=== PATIENT | male | born 1975 | race Caucasian/White ===

== ENCOUNTER 2021-03-29 16:17 | Emergency (ER) | payer BC, SELFPAY ==
[2021-03-29 16:32] VITALS: BP 124/92; PULSE 80; RESP 20; TEMP 37; O2SAT 98
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
[2021-03-31 20:33] LABS: SARS-CoV-2 RNA PCR Negative
== END 2021-03-29 17:38 | disposition home or self-care (01) ==
PROVIDERS: Emergency Provider Nurse Practitioner Family; PCP Internal Medicine
DX: J02.9 Acute pharyngitis, unspecified (principal); Z20.822 Contact with and (suspected) exposure to COVID-19
CPT/HCPCS: 87081; 87426; 87880; 99213; C9803; G0463; U0003; U0005

== ENCOUNTER 2021-05-22 19:26 | Emergency (ER) | payer BC, SELFPAY ==
[2021-05-22 19:33] VITALS: BP 135/90; PULSE 91; RESP 18; TEMP 36.9; O2SAT 98
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
[2021-05-24 19:29] LABS: SARS-CoV-2 RNA PCR Negative
== END 2021-05-22 20:05 | disposition home or self-care (01) ==
PROVIDERS: Emergency Provider Nurse Practitioner; PCP Internal Medicine
DX: R43.9 Unspecified disturbances of smell and taste (principal); Z20.822 Contact with and (suspected) exposure to COVID-19
CPT/HCPCS: 87426; 99213; C9803; G0463; U0003; U0005

== ENCOUNTER 2021-09-10 14:15 | Emergency (ER) | payer BC, SELFPAY ==
[2021-09-10 14:27] VITALS: BP 129/84; PULSE 95; RESP 18; TEMP 37.7; O2SAT 100
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
[2021-09-11 12:27] LABS: SARS-CoV-2 RNA PCR Positive
== END 2021-09-10 15:27 | disposition home or self-care (01) ==
PROVIDERS: Emergency Provider Nurse Practitioner Family; PCP Internal Medicine
DX: U07.1 COVID-19 (principal)
CPT/HCPCS: 99213; C9803; G0463; U0003; U0005

== ENCOUNTER 2023-04-08 12:20 | Emergency (ER) | payer BC, SELFPAY ==
[2023-04-08 12:33] VITALS: BP 132/81; PULSE 70; RESP 18; TEMP 36.4; O2SAT 100
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
== END 2023-04-08 12:46 | disposition home or self-care (01) ==
PROVIDERS: Emergency Provider Nurse Practitioner Family; PCP Nurse Practitioner Family
DX: L25.9 Unspecified contact dermatitis, unspecified cause (principal)
CPT/HCPCS: 99213; G0463

== ENCOUNTER 2024-12-02 09:13 | Emergency (ER) | payer OTHER, SELFPAY ==
--- NOTE | ~2024-12-02 | XR_ITS ---
XR abdomen/kub 1V 12/02/2024 09:50 INDICATION: Generalized abdominal pain TECHNIQUE: KUB COMPARISON: None FINDINGS: Bowel gas pattern is normal. There is no evidence of free air, mass, organomegaly, ascites or obstruction. No abnormal calculi are seen. The bones appear intact. IMPRESSION: 1: No acute abdominal abnormality identified. Reviewed, dictated and finalized at location B.
--- OUTSIDE RECORDS SUMMARY | 2024-12-02 09:15 | XMS_ITS | Clinical Summary ---
Author Organization [facility] Address [address] [place] [address] Care Team Providers Care Florist Supplies Salesperson Name Role Phone Ching Morales Primary Care Provider [phone] Allergies Active Allergy Reactions Criticality Noted Date Comments Seasonal Sneezing 05/15/2021 Medications loratadine 10 MG tablet Take 1 tablet (10 mg total) by mouth daily as needed for Allergies. 7 Active CPAP MACHINEIndicati ons:Obstructive sleep apnea, adult Serra and Paykel Simplus medium size with heated humidifier , pressure setting of 14 cm of water 1 Device 9 Active CPAP SUPPLIESIndicat ions:Obstructiv e sleep apnea, adult Use per instructions 1 Device 1 9 Active albuterol sulfate HFA 108 (90 Base) MCG/ACT inhalerIndicati ons:Bronchitis Inhale 2 puffs into the lungs every 6 (six) hours as needed for Wheezing. 18 g 4 Active albuterol sulfate HFA 108 (90 Base) MCG/ACT inhalerIndicati ons:Bronchitis Inhale 2 puffs into the lungs every 4 (four) hours as needed for Wheezing. 8 g 4 Active Respiratory Therapy Supplies (NEBULIZER/TUBI NG/MOUTHPIECE) KitIndications: Acute bronchitis, unspecified organism 1 each by Does not apply route every 4 (four) hours as needed. 1 kit 4 Active budesonide-glyc opyrrolate-form oterol (BREZTRI AEROSPHERE) 160-9-4.8 MCG/ACT inhaler Inhale 1 puff into the lungs 2 (two) times daily. Active ipratropium-alb uterol (DUONEB) 0.5-2.5 (3) MG/3ML Solution Take 3 mLs by nebulization. 4 Active Active Problems Problem Noted Date Diagnosed Date Carpal tunnel syndrome of right wrist 02/21/2021 Folliculitis 10/14/2020 Fungal dermatosis 09/12/2019 Upper respiratory tract infection, unspecified t ype 08/02/2019 Assessment & Plan (08/02/2019 3:10 PM REHAB AIDE): Suspect viral URI try flonase and tessalon pearles. If no improvement in a few days then can try z pack Dermatitis of perianal region 03/30/2019 Obstructive sleep apnea, adult 08/20/2017 BMI 34.0-34.9,adult 05/13/2016 Seasonal allergic rhinitis 12/27/2014 Resolved Problems Problem Noted Date Diagnosed Date Resolved Date Acute right-sided low back p ain without sciatica 11/02/2018 03/30/2019 Influenza 11/02/2018 03/30/2019 Cough 11/02/2018 03/30/2019 Encounter for preventive health examination 06/23/2012 10/25/2018 Immunizations Name Administration Dates Next Due Fluarix (IIV4) 08/07/2020 Influenza (Generic) 09/13/2022, 2,09/12/2019,2016 Influenza Adult (Generic) 08/07/2020,07/01/2017 MODERNA COVID-19 (12+) MRNA, LNP-S, PF, 100 MCG/ 0.5 ML DOSE 11/07/2020,10/11/2020 Td (Tenivac) preservative free 05/13/2011 Td, Adsorbed, Preservative F ree, Adult Use, Lf Unspecified 05/13/2011 Tdap (Adacel) 07/08/2014 Tdap (Generic) 07/08/2014 Family History Medical History Relation Comments Heart Father Hypertension Mother Diabetes Other Relation Status Comments Father Alive Mother Alive Other Alive Social History Tobacco Use Types Packs/Day Years Used Date Smoking Tobacco: Never Smokeless Tobacco: Never Tobacco Cessation:Counseling Given: No Comments:non smoker Alcohol Use Standard Drinks/Week Comments Yes 0 (1 standard drink = 0.6 oz pur e alcohol) socially AUDIT-C Answer Date Recorded Frequency of Alcohol Consumption 2-4 times a mon th 10/21/2018 Average Number of Drinks Not on file 019 Frequency of Binge Drinking Not on file 04/2019 PHQ-2 Answer Date Recorded Patient Health Questionnaire-2 Score 0 02/09/2023 Education Answer Date Recorded What is the highest level of school you have completed or the highest degree you have received? Bachelor's degree (e.g., BA, AB, BS) 11/01/2018 Sex and Gender Information Value Date Recorded Sex Assigned at Not on file Legal Sex Male 5:36 PM CDT Gender Identity Not on file Sexual Orientation Not on file Occupation Industry Job Start Date Job End Date Not on file Not on file Not on file Not on file Last Filed Vital Signs Vital Sign Reading Time Taken Comments Blood Pressure 122/73 08/07/2024 1:27 PM REHAB AIDE Pulse 62 08/07/2024 1:27 PM REHAB AIDE Temperature 36.6 C (97.9 F) 08/07/2024 1:27 PM REHAB AIDE Respiratory Rate 16 08/07/2024 1:27 PM REHAB AIDE Oxygen Saturation 100% 08/07/2024 1:27 PM REHAB AIDE Inhaled Oxygen Concentration - - Weight 117.5 kg (259 lb) 08/07/2024 1:27 PM REHAB AIDE Height 182.9 cm (6') 08/07/2024 1:27 PM REHAB AIDE Body Mass Index 35.13 08/07/2024 1:27 PM REHAB AIDE Plan of Treatment Health Maintenance Due Date Last Done Comments Hepatitis B Vaccines (1 of 3 - 19+ 3-dose series) 12/03/1995 PHQ-2 (Physician [place]) 02/10/2024 02/09/2023 Influenza Adult (#1) 2024 09/13/2022, 09/13/2021, 08/07/2020, Additional history exists DTaP, Tdap and Td Vaccines (3 - Td or Tdap) 07/08/2024 07/08/2014, 07/08/2014, 05/13/2011, Additional history exists PHQ-2 (Physician [place]) 09/13/2024 02/09/2023 Annual Physical 08/07/2025 08/07/2024, 12/16/2021 Colorectal Cancer Screening FIT-DNA (3 Years) 08/10/2025 08/10/2022, 08/10/2022 COVID-19 Vaccine ( season) 2031 11/07/2020, 10/11/2020 Postponed from 05/14/2024 (Patient Refused) Hepatitis C Completed 02/09/2023 Meningococcal B Vaccine Aged Out No l onger eligible based on patient's age to complete this topic Meningococcal Vaccine Aged Out No shon noris eligible based on patient's age to complete this topic Pneumococcal Vaccine: Pediatrics (0 to 5 Years) and At-Risk Patients (6 to 64 Years) Aged Out No longer eligible based on patient's age to complete this topic RSV Immunizations Under 20 Months Aged Out No longer eligible based on patient's age to complete this topic Procedures Procedure Name Priority Date/Time Associated Diagnosis Comments HEPATITIS PANEL,ACUTE Routine 02/09/2023 10:46 AM CDT Elevated liver function tests COLOGUARD (EXACT SCIENCE) Routine 08/10/2022 10:30 PM REHAB AIDE Colon cancer screening from Last 3 Months or Most Recently Relevant to Health Maintenance Results * HEPATITIS PANEL,ACUTE (02/09/2023 10:46 AM CDT) HEPATITIS B SURFACE AG NON-REACTI VE NON-REACTI VE 02/10/2023 3:[address] [facility] HEP B CORE IGM NON-REACTI VE NON-REACTI VE 02/10/2023 3:[address] [facility] HAV IGM NON-REACTI VE NON-REACTI VE 02/10/2023 3:[address] [facility] HEPATITIS C AB NON-REACTI VE NON-REACTI VE 02/10/2023 3:[address] [facility] 02/09/2023 10:4 6 AM CDT us [facility] Final Result [facility] [address] [place] [address], * COLOGUARD (EXACT SCIENCE) (08/10/2022 10:30 PM REHAB AIDE) COLOGUARD RESULT Negative Negative [facility] (CLIA #:[id number]) Comment: NEGATIVE TEST RESULT. A negative Cologuard result indicates a low likelihood that a colorectal cancer (CRC) or advanced adenoma (adenomatous polyps with more advanced pre-malignant features) is present. The chance that a person with a negative Cologuard test has a colorectal cancer is less than 1 in 1500 (negative predictive value >99.9%) or has an advanced adenoma is less than 5.3% (negative predictive value 94.7%). These data are based on a prospective cross-sectional study of 10,000 individuals at average risk for colorectal cancer who were screened with both Cologuard and colonoscopy. (Anjelica Wynn al, N Engl J Med 2014;370(14):5434-7257) The normal value (reference range) for this assay is negative. COLOGUARD RE-SCREENING RECOMMENDATION: Periodic colorectal cancer screening is an important part of preventive healthcare for asymptomatic individuals at average risk for colorectal cancer. Following a negative Cologuard result, the [place] Cancer Society and U.S. Multi-Society Task Force screening guidelines recommend a Cologuard re-screening interval of 3 years. References: [place] [employer] Society Guideline for Colorectal Cancer Screening: https://www.cancer.org/cancer/uyjqb-iugjgo-uqzxzz/mwhqjivlm-zatpzxuth-jlxsquc/ac s-rec ommendations.html.; Amando DK, Rolando CR, Carmel DeniseK, Colorectal Cancer Screening: Recommendations for Physicians and Patients from the U.S. Multi-Society Task Force on Colorectal Cancer Screening , Am J Gastroenterology 2017; 112:8594-2539. TEST DESCRIPTION: Composite algorithmic analysis of stool DNA-biomarkers with hemoglobin immunoassay. Quantitative values of individual biomarkers are not reportable and are not associated with individual biomarker result reference ranges. Cologuard is intended for colorectal cancer screening of adults of either sex, 45 years or older, who are at average-risk for colorectal cancer (CRC). Cologuard has been approved for use by the U.S. FDA. The performance of Cologuard was established in a cross sectional study of average-risk adults aged 50-84. Cologuard performance in patients ages 45 to 49 years was estimated by sub-group analysis of near-age groups. Colonoscopies performed for a positive result may find as the most clinically significant lesion: colorectal cancer [4.0%], advanced adenoma (including sessile serrated polyps greater than or equal to 1cm diameter) [20%] or non- advanced adenoma [31%]; or no colorectal neoplasia [45%]. These estimates are derived from a prospective cross-sectional screening study of 10,000 individuals at average risk for colorectal cancer who were screened with both Cologuard and colonoscopy. (Anjelica Wynn al, N Engl J Med 2014;370(14):5400-4363.) Cologuard may produce a false negative or false positive result (no colorectal cancer or precancerous polyp present at colonoscopy follow up). A negative Cologuard test result does not guarantee the absence of CRC or advanced adenoma (pre-cancer). The current Cologuard screening interval is every 3 years. ([place] Cancer Society and U.S. Multi-Society Task Force). Cologuard performance data in a 10,000 patient pivotal study using colonoscopy as the reference method can be accessed at the following location: www.Footmarks.PAIEON/results. Additional description of the Cologuard test process, warnings and precautions can be found at www.cologSoft Tissue Regenerationrd.com. STOOL STOOL SPECIMEN / Unknown 08/10/2022 10:30 PM REHAB AIDE 08/12/2022 10:34 AM REHAB AIDE us Ching [facility] ORDER ILZ Final Result [facility]) [address] [place] [address], [facility] (CLIA #:[id number]) [address] [place] [address] from Last 3 Months or Most Recently Relevant to Health Maintenance Insurance [facility] Care Teams Florist Supplies Salesperson Relationship Specialty [place] [address] [place] [address] PCP - General 02/06/23
--- OUTSIDE RECORDS SUMMARY | 2024-12-02 09:15 | XMS_ITS | Referral Summary ---
Author Organization [facility] [address] Address [address] [place] [id number] Care Team Providers Care Court Bailiff Or Sheriff Name Role Phone Elizabeth Kate NP Primary Care Provider [phone] Allergies No known active allergies Medications loratadine (CLARITIN) 10 mg tablet Take 1 tablet (10 mg total) by mouth daily Active Vios Aerosol Delivery System device USE NEEDED 11/09/2023 Active ipratropium-albu teroL (DUO-NEB) 0.5-2.5 mg/3 mL nebulizer solution Inhale 3 mL every 4 (four) hours as needed 11/09/2023 Active albuterol HFA (PROVENTIL HFA,VENTOLIN HFA,PROAIR HFA) 90 mcg/actuation inhaler Inhale 2 puffs every 4 (four) hours as needed 09/22/2023 Active budesonide-glyco pyr-formoterol (Breztri Aerosphere) 160-9-4.8 mcg/actuation inhaler Inhale 1 puff 2 (two) times a day Active Active Problems Problem Noted Date Diagnosed Date Class 2 obesity due to exces s calories without serious comorbidity with body mass index (BMI) of 36.0 to 36.9 in adult 02/11/2023 Assessment & Plan (03/08/2023 11:50 AM CDT): Discussed the fatty liver and diet modifications to make. Healthy, low carbohydrate lifestyle and exercise for 150min/week recommended Assessment & Plan (02/11/2023 4:12 PM CDT): Healthy, low carbohydrate lifestyle and exercise for 150min/week recommended Carpal tunnel syndrome of right wrist 02/21/2021 02/11/2023 Folliculitis 10/14/2020 02/11/2023 Fungal dermatosis 09/12/2019 02/11/2023 Upper respiratory tract infection 08/02/2019 02/11/2023 Overview (02/11/2023): Last Assessment & Plan: Suspect viral URI try flonase and tessalon pearles. If no improvement in a few days then can try z pack Dermatitis of perianal region 03/30/2019 Obstructive sleep apnea, adult 08/20/2017 0 02/11/2023 Assessment & Plan (02/11/2023 4:11 PM CDT): Wears CPAP Nightly Seasonal allergic rhinitis 12/27/201402/11 Immunizations Immunization Administration Dates Next Due Influenza, Quadrivalent, Spl it, Preservative Free, Intramuscular 08/07/2020 Influenza, Unspecified 11/24/2023(Deferr ed: Patient Refused),09/13/2022,09/13/2021, 020,09/12/2019,07/01/2017 TD Preservative Free 05/13/2011 Td, Adsorbed, Preservative F ree, Adult Use, Lf Unspecified 05/13/2011 Tdap 07/08/2014 Social History Tobacco Use Types Packs/Day Years Used Date Smoking Tobacco: Never Passive Smoke Exposure: Never Smokeless Tobacco: Never PHQ-2 Answer Date Recorded PHQ-2 Total Score (If total score is 3 or more points, staff should administer the PHQ-9) 0 11/24/2023 Sex and Gender Information Value Date Recorded Sex Assigned at Not on file 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 Gender Identity Not on file Sexual Orientation Not on file Last Filed Vital Signs Vital Sign Reading Time Taken Comments Blood Pressure 116/78 11/24/2023 9:31 AM CDT Pulse 74 11/24/2023 9:31 AM CDT Temperature 36.4 C (97.6 F) 11/24/2023 9:31 AM CDT Respiratory Rate 18 11/24/2023 9:31 AM CDT Oxygen Saturation 98% 11/24/2023 9:31 AM CDT Inhaled Oxygen Concentration - - Weight 119.7 kg (264 lb) 11/24/2023 9:31 AM CDT Height 182.9 cm (6') 11/24/2023 9:31 AM CDT Body Mass Index 35.8 11/24/2023 9:31 AM CDT Plan of Treatment Not on file [place] Care Teams Court Bailiff Or Sheriff Relationship Specialty Start Date End Date Elizabeth Kate NP [address] [facility] [address] [place] [address] PCP - General Family Medicine 02/11/23
--- OUTSIDE RECORDS SUMMARY | 2024-12-02 09:15 | XMS_ITS | Clinical Summary ---
Author Organization [facility] [address] Address [address] [place] [id number] Care Team Providers Care Lead Pony Rider Name Role Phone Elizabeth Kate NP Primary Care Provider [phone] Allergies No known active allergies Medications loratadine [...] Adult Use, Lf Unspecified 05/13/2011 Tdap 07/08/2014 Surgical History Surgery Date Site/Laterality Comments MANDIBLE SURGERY FEMUR SURGERY WISDOM TOOTH EXTRACTION Medical History Medical History Date Comments CPAP (continuous positive airway pressure) depen dence Social History Tobacco Use Types Packs/Day Years Used Date Smoking Tobacco: Never Passive Smoke Exposure: Never Smokeless Tobacco: Never PHQ-2 Answer Date Recorded PHQ-2 Total Score (If total score is 3 or more points, staff should administer the PHQ-9) 0 11/24/2023 Sex and Gender Information Value Date Recorded Sex Assigned at Not on file 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 Gender Identity Not on file Sexual Orientation Not on file Obstetrics History Last Filed Vital Signs Vital Sign Reading [...] 11/24/2023 9:31 AM CDT Plan of Treatment Health Maintenance Due Date Last Done Comments Hepatitis C Screening 1976 Hepatitis B Screening 1994 Regular Well Visit/Exam 18-64 1994 Covid-19 Vaccine ( season) 2024 11/07/2020, 10/11/2020 Influenza Vaccine (#1) 2024 , 09/13/2022, 09/13/2021, Additional history exists DTaP/Tdap/Td Vaccine (2 - Td or Tdap) 07/08/2024 07/08/2014, 05/13/2011, 05/13/2011 Depression Screening 11/23/2024 11/24/2023, 03/08/2023, 02/11/2023 Colon Cancer Screening-DNA Stool 08/04/2025 08/04/2022 Pneumococcal vaccine <65 Aged Out No longer eligible based on patient's age to complete this topic [place] Care Teams Lead Pony Rider Relationship Specialty Start Date End Date Elizabeth Kate NP [address] [place] [address] PCP - General Family Medicine 02/11/23
[2024-12-02 09:21] VITALS: BP 118/79; PULSE 106; RESP 18; TEMP 36.3; O2SAT 99
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
[2024-12-02 09:54] LABS: EDCOVIDSCREEN Negative (Negative); EDINFLUASCREEN Negative (Negative); EDINFLUBSCREEN Negative (Negative)
== END 2024-12-02 10:02 | disposition home or self-care (01) ==
PROVIDERS: Emergency Provider Nurse Practitioner Family; PCP Physician Assistant
DX: K52.9 Noninfective gastroenteritis and colitis, unspecified (principal); Z20.822 Contact with and (suspected) exposure to COVID-19
CPT/HCPCS: 74018; 87426; 87804; 99213; G0463